=== PATIENT | female | born 1965 | race Caucasian/White ===

== ENCOUNTER → 2018-02-26 | Outpatient (CLI) | payer OTHER ==
[2014-06-09 11:03] VITALS: BP 118/44
[~2018-02-26] MED LIST: ASPI-612 PO; CONTRAST GIVEN. MC PRN; IOHEXOL 300 MG/ML 100ML VIAL. IV ONE; OMEP20TA8 PO; VENL75CA PO
--- NOTE | 2018-02-26 16:38 | KCIC ---
CT CHEST W/CONTRAST Indication: Sarcoidosis Technique: Postcontrast CT imaging was performed of the chest, multiplanar reconstruction images submitted. One or more of the following individualized dose reduction techniques were utilized for this examination: 1. Automated exposure control 2. Adjustment of the mA and/or kV according to patient size 3. Use of iterative reconstruction technique. Comparison: September 01, 2014 Findings: There is no new suspicious pulmonary nodularity, infiltrate, pleural or pericardial effusion, pneumothorax. There is probable very mild dependent atelectasis on the right. Major airways are patent. No new significantly enlarged nodes are identified of the chest, again small bilateral axillary nodes. Thoracic aortic caliber is within normal limits, no intraluminal flap. There is no abnormality of the visualized thyroid gland. IMPRESSION: 1. There is no new significant abnormality. Electronically signed by: Morgan Nicole MD (02/26/2018 4:34 PM) [email or web address]
== END | disposition home or self-care (01) ==
LOC: KCIC CT 09:18
PROVIDERS: ATTEND Internal Medicine Critical Care Medicine
DX: D86.9 Sarcoidosis, unspecified (principal)
CPT/HCPCS: 71260; Q9967

== ENCOUNTER → 2018-04-20 | Outpatient (CLI) | payer OTHER ==
[2014-06-09 11:03] VITALS: BP 118/44
[~2018-04-20] MED LIST changes: -CONTRAST GIVEN. MC PRN; -IOHEXOL 300 MG/ML 100ML VIAL. IV ONE
--- NOTE | 2018-04-20 11:46 | KCIC ---
CT scan of the temporal bones without contrast 04/20/2018 CLINICAL HISTORY: Left hearing loss for one year. TECHNIQUE: Unenhanced, contiguous, 0.6 mm axial sections were obtained through the petrous portions of the temporal bones. 1 mm reconstructed sagittal, axial and coronal images were obtained. One or more of the following individualized dose reduction techniques were utilized for this study: 1. Automated exposure control. 2. Adjustment of the mA and/or kV according to patient size. 3. Use of iterative reconstruction technique. Findings: Small scattered areas of soft tissue attenuation are seen within the left middle ear cavity which likely represent areas of inflammation. No well-defined soft tissue mass is seen. The left middle ear ossicles are intact. The left cochlea and semicircular canals are within normal limits. The left mastoid air cells are well aerated and are clear. The bony structures of the right external auditory canal, middle ear cavity and internal artery canal within normal limits. The right mastoid air cells are well aerated and are clear. The visualized paranasal sinuses are clear. IMPRESSION: Small scattered areas of soft tissue attenuation are seen within the left middle ear cavity consistent with areas of inflammation. No ossicular erosion is seen. Electronically signed by: Jasen Stewart MD (04/20/2018 11:43 AM) [email or web address]
== END | disposition home or self-care (01) ==
LOC: KCIC CT 07:54
PROVIDERS: ATTEND Otolaryngology
DX: H90.72 Mixed conductive and sensorineural hearing loss, unilateral, left ear, with unrestricted hearing on the contralateral side (principal)
CPT/HCPCS: 70480

== ENCOUNTER → 2021-05-17 | Outpatient (CLI) | payer OTHER ==
[2014-06-09 11:03] VITALS: BP 118/44
[~2021-05-17] MED LIST changes: -ASPI-612 PO; +ASPI-886 PO; -OMEP20TA8 PO; +OMEP20TA91 PO
--- NOTE | 2021-05-17 14:41 | KCIC ---
EXAM: CT coronary artery calcium screening; radiologist over read. HISTORY: Mixed hyperlipidemia. TECHNIQUE: Computed tomographic images of the chest were obtained without contrast. Multiplanar refor matting was performed. *One or more of the following individualized dose reduction techniques were utilized for this examina tion: 1. Automated exposure control. 2. Adjustment of the mA and/or kV according to patient size. 3. Use of iterative reconstruction technique. COMPARISON: 02/26/2018. FINDINGS: The heart is normal in size. The aorta is normal in caliber. There is no coronary artery ca lcification. There is no infiltrate, pleural effusion or pneumothorax. There is a 3 mm groundglass no dule within the right middle lobe (series 5, image 32). There is a 3 mm groundglass nodule at the lef t right base (series 5, image 28). There is no acute finding involving the upper abdomen or osseous s tructures. IMPRESSION: 1. No coronary artery calcification. Coronary artery calcium score of 0. 2. Stable 3 mm groundglass nodules within the right middle lobe and lung base. The size and greater t brewer 3 year course of stability favors benignity. Electronically signed by: Shivani Basurto MD (05/17/2021 2:38 PM) [facility]
== END ==
LOC: KCIC CT 12:32
PROVIDERS: ATTEND Family Medicine
DX: R91.8 Other nonspecific abnormal finding of lung field (principal); E78.2 Mixed hyperlipidemia; Z82.49 Family history of ischemic heart disease and other diseases of the circulatory system
CPT/HCPCS: 75571